=== PATIENT | female | born 1970 ===

== ENCOUNTER 2020-07-06 10:08 | Emergency (ER) | payer OTHER ==
[~2020-07-06] VITALS: Ht 157.5 cm; Wt 65.8 kg
== END 2020-07-06 16:00 | disposition home or self-care (01) ==
LOC: ER 10:08
DX: K80.80 Other cholelithiasis without obstruction (principal); R10.11 Right upper quadrant pain; R10.12 Left upper quadrant pain; Z03.818 Encounter for observation for suspected exposure to other biological agents ruled out

== ENCOUNTER 2020-07-21 08:44 | Emergency (ER) | payer OTHER ==
[~2020-07-21] VITALS: Ht 157.5 cm; Wt 65.8 kg
== END 2020-07-21 14:05 | disposition home or self-care (01) ==
LOC: ER 08:44
DX: K80.80 Other cholelithiasis without obstruction (principal); R10.11 Right upper quadrant pain; Z03.818 Encounter for observation for suspected exposure to other biological agents ruled out

== ENCOUNTER 2023-07-21 14:09 | Outpatient (CLI) | payer OTHER | END 2023-07-21 14:16 | disposition home or self-care (01) | LOC: SONOGRAMA 14:09 | PROVIDERS: ATTEND Pathology Anatomic Pathology & Clinical Pathology | DX: E04.1 Nontoxic single thyroid nodule (principal); Z91.011 Allergy to milk products ==

== ENCOUNTER 2025-05-30 10:16 | Outpatient (CLI) | payer OTHER | END 2025-05-30 10:21 | disposition home or self-care (01) | LOC: SONOGRAMA 10:16 | PROVIDERS: ATTEND Pathology Anatomic Pathology & Clinical Pathology | DX: E04.1 Nontoxic single thyroid nodule (principal) ==